=== PATIENT | female | born 1990 | race Caucasian/White ===

== ENCOUNTER 2019-06-23 03:29 | Emergency (ER) | payer OTHER, SELFPAY ==
[2019-06-23 03:36] VITALS: BP 129/79; PULSE 95; RESP 16; TEMP 36.2; O2SAT 100
--- NOTE | 2019-06-23 03:41 | ED_ITS ---
HPI - URI/Sore Throat General Chief Complaint: Upper Respiratory Infection Stated Complaint: Sore throat Time Seen by Provider: 06/23/19 03:32 History of Present Illness HPI Narrative: Sore throat for the past 2 days. Increasing severity. Associated with enlarged lymph nodes and odynophagia. No fever or sick contacts. Related Data Allergies Allergy/AdvReac Type Severity Reaction Status Date / Time azithromycin Allergy Rash Verified 06/23/19 03:42 Penicillins Allergy Dyspnea / Verified 06/23/19 03:42 SOB Review of Systems Review of Systems: All systems reviewed & are unremarkable except as noted in HPI and below Constitutional: Constitutional: Denies fever(s) Eyes: Eyes: Denies change in vision ENT: Reports sore throat Cardiovascular: Cardiovascular: Denies chest pain Respiratory: Respiratory: Denies dyspnea Gastrointestinal: Gastrointestinal: Denies abdominal pain, Denies nausea and Denies vomiting Genitourinary: Genitourinary: Denies dysuria Musculoskeletal: Musculoskeletal: Reports myalgias Neurologic: Denies syncope and Denies weakness Exam Const: General: no acute distress, alert and ill appearing acutely Nutritional Appearance: obese Orientation/consciousness: patient oriented x3 HENMT: Mouth: Yes Abnormal oral and palatal mucosa present edematous Throat: abnormal tonsil bilateral erythema, exudates and hypertrophy Eyes: Pupils: Equal, round and reactive pupils present Neck: Neck: lymphadenopathy Resp: Effort & Inspection: normal respiratory effort Auscultation: wheezes Other: minimal Cardio: Rate: regular rate Rhythm: regular rhythm Skin: General skin exam: normal color Rashes: no rashes Neuro: General: patient oriented x3 and moves all extremities Speech: normal speech Extrem: General: normal to inspection Course Vital Signs Vital signs: Vital Signs Temperature 36.2 C L 06/23/19 03:36 Pulse Rate 95 06/23/19 03:36 Respiratory Rate 16 06/23/19 03:36 Blood Pressure 129/79 06/23/19 03:36 Pulse Oximetry 100 06/23/19 03:36 Temperature 36.2 C L 06/23/19 03:36 Pulse Rate 68 06/23/19 04:47 Respiratory Rate 15 06/23/19 04:47 Blood Pressure 131/78 06/23/19 04:47 Pulse Oximetry 98 06/23/19 04:47 MDM - URI/Sore Throat MDM Narrative Medical decision making narrative: Lab Data Labs: Strep Screen Presumptive Negative *(Reference Range: Negative)* Discharge Plan Discharge Clinical Impression: Tonsillitis Patient Disposition: Home, Self-Care Condition: Stable Instructions: Tonsillitis (ED) Follow-up/Referrals: PHYSICIAN,[facility] [Primary Care Provider] - Discharge Date/Time: 06/23/19 04:47
[2019-06-23] MEDS: KETOROLAC (*BKC) 60 MG/2 ML VIAL IM (04:41)
[2019-06-23 04:47] VITALS: BP 131/78; PULSE 68; RESP 15; O2SAT 98
== END 2019-06-23 04:47 | disposition home or self-care (01) ==
PROVIDERS: Emergency Provider Emergency Medicine
DX: J03.90 Acute tonsillitis, unspecified (principal)
CPT/HCPCS: 87081; 87880; 96374; 99284; J1100; J1885

== ENCOUNTER 2021-02-20 04:03 | Emergency (ER) | payer OTHER, SELFPAY ==
--- NOTE | ~2021-02-20 | XR_ITS ---
EXAMINATION: XR thoracic spine 3V DATE: 02/20/2021 04:38 INDICATION: Mid to left-sided back pain. TECHNIQUE: 3 views of thoracic spine on 4 radiographs were obtained. COMPARISON: None. FINDINGS: There is 5 degrees levocurvature of thoracic spine. Vertebral body heights and intervertebr al disc heights are normal. There are endplate osteophytes at multiple levels. IMPRESSION: 1. Mild thoracic spondylosis. Reviewed, dictated and finalized at location A.
--- NOTE | ~2021-02-20 | XR_ITS ---
EXAMINATION: XR shoulder LT min 2V DATE: 02/20/2021 04:39 INDICATION: Left shoulder pain. TECHNIQUE: 4 views of left shoulder were obtained. COMPARISON: None. FINDINGS: Bone alignment is normal. No fracture. Joint spaces are well maintained. IMPRESSION: 1. Normal left shoulder. Reviewed, dictated and finalized at location A. IMPRESSION: 1. Normal left shoulder.
[2021-02-20 04:12] VITALS: BP 140/78; PULSE 88; RESP 18; TEMP 36.6; O2SAT 99
--- NOTE | 2021-02-20 04:15 | ED.GENADULT ---
HPI - General Adult General Chief complaint: Extremity Injury, Upper Stated complaint: Left shoulder pain Time Seen by Provider: 02/20/21 04:08 Source: RN notes reviewed History of Present Illness HPI narrative: Patient presents emergency department from home for left-sided shoulder and back pain. 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 and they began to come more quickly and fall on her and she went to grab them and felt some pop in her left posterior shoulder she states the pain is located between her shoulder blade and her spine pain is worse with movement of her left shoulder she denies any direct trauma to the area she denies any other injuries she states she not take anything for the pain denies any numbness or tingling Related Data Allergies Allergy/AdvReac Type Severity Reaction Status Date / Time azithromycin Allergy Rash Verified 02/20/21 04:14 Penicillins Allergy Dyspnea / Verified 02/20/21 04:14 SOB Review of Systems Review of Systems: Gen.: Denies fevers or chills CV: Denies chest pain Respiratory: Denies shortness of breath Musculoskeletal: See HPI Neuro: Denies numbness, tingling, weakness Skin: Denies rash Endo: Denies DM PMFSH Past Medical History Medical History (Updated 02/20/21 @ 04:47 by Joseluis Muro DO) Patient denies significant medical history Social History Social History (Updated 02/20/21 @ 04:16 by Joseluis Muro DO) Smoking status: Never smoker Exam Narrative: APPEARANCE: No acute distress, nontoxic, resting in bed EYES: EOMI HEENT: Normocephalic, atraumatic, OMM Neck: Supple no midline tenderness to palpation RESPIRATORY: No respiratory distress Clear to auscultation bilaterally with no rhonchi wheezing or rales. CARDIOVASCULAR: Regular rate and rhythm without murmurs rubs or gallops. MUSCULOSKELETAl: Moves all extremities. No clubbing, cyanosis or edema. Patient with a left posterior shoulder and left back in the region of the rhomboid pain increased with flexion abduction of left shoulder greater than 45 degrees, no tenderness of the left anterior lateral shoulder no tenderness of the left elbow or wrist radial pulse 2+ neurovascular intact Back: No midline thoracic or lumbar tenderness palpation tender palpation of the left paravertebral muscles T2-6 region of the left rhomboid NEURO: Awake and alert. Following commands, speech normal, no focal deficits SKIN:: Warm, dry. No rashes lesions or abrasions PSYCHIATRIC: Normal affect/mood, Course Course Emergency Course: Discussed with patient results of workup and diagnosis. Discussed need for follow-up with primary care, proper use of medication, and reasons to return to the emergency department. Patient understands and agrees to current treatment plan Vital Signs Vital signs: Vital Signs Temperature 97.9 F 02/20/21 04:12 Pulse Rate 88 02/20/21 04:12 Respiratory Rate 18 02/20/21 04:12 Blood Pressure 140/78 02/20/21 04:12 Pulse Oximetry 99 02/20/21 04:12 Temperature 97.9 F 02/20/21 04:12 Pulse Rate 88 02/20/21 04:12 Respiratory Rate 18 02/20/21 04:12 Blood Pressure 140/78 02/20/21 04:12 Pulse Oximetry 99 02/20/21 04:12 Medical Decision Making Vital Signs Vital Signs: Vital Signs Temperature 97.9 F 02/20/21 04:12 Pulse Rate 88 02/20/21 04:12 Respiratory Rate 18 02/20/21 04:12 Blood Pressure 140/78 02/20/21 04:12 Pulse Oximetry 99 02/20/21 04:12 Temperature 97.9 F 02/20/21 04:12 Pulse Rate 88 02/20/21 04:12 Respiratory Rate 18 02/20/21 04:12 Blood Pressure 140/78 02/20/21 04:12 Pulse Oximetry 99 02/20/21 04:12 Imaging Data Attestation: I personally reviewed and interpreted this imaging study as follows: My impression: Left shoulder x-ray read by myself shows no acute process Thoracic spine x-ray read by myself shows no acute process Discharge Plan
[2021-02-20] MEDS: IBUPROFEN 600 MG TABLET PO (05:01)
--- NOTE | 2021-03-06 00:26 | PC.NURSE ---
This note is to verify that my wound injury assessment should be the left shoulder- not the right shoulder. This note is being entered to document information to the patient's record. The following information was omitted on [02/22/21], by [dinah ROGERS].
--- NOTE | 2021-03-15 13:16 | PC.NURSE ---
LATE ENTRY This note is being entered to document information to the patient's record. The following information was omitted on [02/20/2021], by [Katherine Dc RN]. Injury verified to be on left shoulder not as incorrectly documented on the wound injury assessment as right shoulder.
== END 2021-02-20 05:07 | disposition home or self-care (01) ==
PROVIDERS: Emergency Provider Emergency Medicine
DX: S46.812A Strain of other muscles, fascia and tendons at shoulder and upper arm level, left arm, initial encounter (principal); X50.9XXA Other and unspecified overexertion or strenuous movements or postures, initial encounter
CPT/HCPCS: 72072; 73030; 99284; A9270